=== PATIENT | female | born 1965 | race Two or more races ===

== ENCOUNTER 2017-11-22 15:56 | Emergency (ER) | payer MEDICAID ==
[~2017-11-22] VITALS: Ht 149.9 cm; Wt 54.4 kg
[2017-11-22] MEDS ORDERED: HYDROcodone-ACET 10/325MG TAB PO ONE (19:45)
[2017-11-22 20:03] VITALS: BP 133/81
== END 2017-11-22 20:18 | disposition home or self-care (01) ==
LOC: ER 16:05
DX: S52.591A Other fractures of lower end of right radius, initial encounter for closed fracture (principal); S52.611A Displaced fracture of right ulna styloid process, initial encounter for closed fracture; W01.198A Fall on same level from slipping, tripping and stumbling with subsequent striking against other object, initial encounter; Y93.89 Activity, other specified; Y99.8 Other external cause status; Y92.89 Other specified places as the place of occurrence of the external cause
CPT/HCPCS: 29125; 73060; 73110; 73130